=== PATIENT | male | born 1990 | race Two or more races ===

== ENCOUNTER 2016-06-01 11:59 | Emergency (ER) | payer SELFPAY ==
--- NOTE | 2016-06-07 14:37 | ER ---
ADMIT: 06/01/2016 RM/LOC: ER [facility] MR#: [id number] [address] [id number] CHARLEE DIAZ [address] [place] [address] Emergency Room Report SEX: M AGE: 25 : 1990 DATE: 06/01/2016 ADDENDUM: CHIEF COMPLAINT: Dental pain. HISTORY OF PRESENT ILLNESS: This is a 25-year-old, who has a fractured tooth, has not really caused him any problems, but over the last 3 days, he has been having excruciating jaw pain. In fact, he said when he has his worse pain he rates it at a 12/10. Right now, he is rating it at 7 or 8/10. He has been taking Tylenol and Motrin and really just does not relieve the pain. He did call the dentist, he has an appointment for next Sunday. EMERGENCY DEPARTMENT COURSE: I am going to send him home with amoxicillin for infection, [place] for pain, and having him continue to follow up with dentist as scheduled. CLINICAL IMPRESSION: Tooth fracture. SAMY Bliss / Chao Ridley MD / maye JOB #: [id number] CC: Chao Ridley MD, Attending Physician
== END 2016-06-01 12:46 | disposition home or self-care (01) ==
LOC: ER 11:59
DX: S02.5XXA Fracture of tooth (traumatic), initial encounter for closed fracture (principal); F17.210 Nicotine dependence, cigarettes, uncomplicated; Z79.899 Other long term (current) drug therapy; X58.XXXA Exposure to other specified factors, initial encounter

== ENCOUNTER 2016-06-12 09:05 | Emergency (ER) | payer SELFPAY ==
--- NOTE | 2016-06-13 10:00 | ER ---
ADMIT: 06/12/2016 RM/LOC: ER [facility] MR#: [id number] [address] [facility] [address] CHARLEE DIAZ [address] [facility] [address] [place] [address] Emergency Room Report SEX: M AGE: 25 : 1990 DATE: 06/12/2016 ADDENDUM: A 25-year-old male coming in with facial pain. He has had it on and off for some time but is worse the last couple of days. He related it to his dental extraction of his wisdom teeth but that was 3 years ago. At this time, this appears to be possible trigeminal neuralgia, though he is young for this. Pain just comes right straight down to his chin. He has paroxysms that sometimes kind of goes up to his head as well. At this time, I am going to try him on Tegretol 200 b.i.d. increasing every 3 days to 3 pills b.i.d. At that time, he will be able to see Dr. Cabrera who I spoke with on the phone. I also gave him #30 Percocet 5/325, 1 to 2 p.o. q.6 p.r.n. pain. I did warn him about that, gave him a work note for today, and then should be seen in 7-10 days. CONDITION ON DISCHARGE: Fair. Chao Ridley MD/ maye JOB #: [id number] CC: Chao Ridley MD, Attending Physician Michael Cabrera MD, Family Physician
== END 2016-06-12 11:50 | disposition home or self-care (01) ==
LOC: ER 09:05
DX: R51 Headache (principal); F17.210 Nicotine dependence, cigarettes, uncomplicated